=== PATIENT | female | born 2000 | race African-American/Black ===

== ENCOUNTER 2018-08-16 13:48 | Emergency (ER) | payer SELFPAY ==
[~2018-08-16] VITALS: Ht 162.6 cm; Wt 68.9 kg
[~2018-08-16 13:48] MED LIST: NKM
[2018-08-16 14:40] VITALS: BP 122/80
[2018-08-16 15:47] LABS: APPEARANCE,URINE CLEAR; BILIRUBIN, URINE NEGATIVE (NEGATIVE); COLOR,URINE BROWN; GLUCOSE, URINE (UA) NEGATIVE (NEGATIVE); KETONES,URINE 4+ (NEGATIVE); LEUKOCYTE ESTERASE ,URINE 1+ (NEGATIVE); NITRITE,URINE NEGATIVE (NEGATIVE); PH,URINE 7 (4.5-8.0); PROTEIN,URINE 2+ (NEGATIVE); UROBILINOGEN,URINE 4 MG/DL (0.0-1.0)
[2018-08-16] MEDS ORDERED: Lidocaine 2% Visc 15ml soln ORAL ONE (16:30)
[2018-08-16] MEDS ORDERED: Dicyclomine HCl 10mg/5ml oral soln ORAL ONE (16:30)
[2018-08-16] MEDS ORDERED: Mylanta II UD 30ml ORAL ONE (16:30)
[2018-08-16 16:40] VITALS: BP 129/74
[2018-08-16] MEDS ORDERED: REGLAN10 MG ORAL (17:13)
[2018-08-16] MEDS ORDERED: TYLENOL EXTRA500 MG ORAL (17:13)
[2018-08-16] MEDS ORDERED: OMEPRAZOLE20 M2 ORAL (17:13)
[2018-08-16 17:35] VITALS: BP 115/71
--- NOTE | 2018-08-16 22:29 | Emergency Room Report ---
History of Present Illness General Chief Complaint: Vomiting Source: Patient Present Illness HPI Patient is a 17-year-old female presenting for 3 days of nausea and vomiting. Vomit is clear to yellow. She is able to tolerate liquids. This occurs only after eating. She denies any known sick contacts or recent travel. She denies other symptoms including fever, chills, diarrhea, constipation, abdominal pain Allergies: Coded Allergies: PENICILLINS (Verified Allergy, Intermediate, Hives, 09/23/13) Patient History Past Medical History: see triage record Pertinent Family History: none Last Menstrual Period: control implant Reviewed Nursing Documentation: PMH: Agreed; PSxH: Agreed Nursing Documentation-PMH Past Medical History: No Stated History Review of Systems All Other Systems: negative except mentioned in HPI Physical Exam Vital Signs Date Time Temp Pulse Resp B/P (MAP) Pulse Ox O2 Delivery O2 Flow Rate FiO2 08/16/18 14:25 98.1 96 14 122/80 99 Room Air Sp02 EP Interpretation: reviewed, normal General Appearance: no apparent distress, alert, GCS 15, non-toxic Head: normocephalic, atraumatic Respiratory: chest non-tender, lungs clear, normal breath sounds, speaking full sentences Gastrointestinal: normal bowel sounds, soft, non-distended, no guarding, no rebound, tenderness - epigastric Musculoskeletal: back normal, gait/station normal, normal range of motion, non- tender Neurologic: alert, oriented x3, responsive, motor strength/tone normal, sensory intact, speech normal Psychiatric: judgement/insight normal, memory normal, mood/affect normal, no suicidal/homicidal ideation Skin: normal color, no rash, warm/dry, well hydrated Medical Decision Making PA Attestation Dr. Camarena is my supervising physician. Patient management was discussed with my supervising physician Diagnostic Impression: Primary Impression: Nausea & vomiting Qualified Codes: R11.2 - Nausea with vomiting, unspecified ER Course Patient is a 17-year-old female presenting for 3 days of nausea and vomiting. Vomit is clear to yellow. She is able to tolerate liquids. This occurs only after eating. She denies any known sick contacts or recent travel. She denies other symptoms including fever, chills, diarrhea, constipation, abdominal pain DDx considered but not limited to: gastroenteritis, , GERD, among others PE: Afebrile. NAD Abd soft. TTP over epigastric region only. URine preg neg Pt is given zofran but nausea continued. She is then given reglan with GI cocktail and symptoms improved. She tolerated eating before DC. She is to F/U with PCP Laboratory Tests Test 08/16/18 15:03 Urine Color Brown Urine Appearance Clear Urine pH 7 (4.5-8.0) Urine Specific [place] 1.015 (1.005-1.035) Urine Protein 2+ (NEGATIVE) H Urine Glucose (UA) Negative (NEGATIVE) Urine Ketones 4+ (NEGATIVE) H Urine Blood 5+ (NEGATIVE) H Urine Nitrite Negative (NEGATIVE) Urine Bilirubin Negative (NEGATIVE) Urine Urobilinogen 4 MG/DL (0.0-1.0) H Urine Leukocyte Esterase 1+ (NEGATIVE) H Urine RBC 5-10 /HPF (0 - 2) H Urine WBC 2-4 /HPF (0 - 2) Urine Squamous Epithelial Cells Few /LPF (NONE/OCC) Urine Bacteria Few /HPF (NONE) Urine Mucus Few /LPF (NONE/OCC) H Urine HCG, Qualitative Negative (NEGATIVE) Lab Results Impression UA unremarkable. Urine preg neg Last Vital Signs Date Time Temp Pulse Resp B/P (MAP) Pulse Ox O2 Delivery O2 Flow Rate FiO2 08/16/18 17:35 98.1 88 18 115/71 99 Room Air Status: improved Disposition: HOME, SELF-CARE Condition: Improved Scripts Acetaminophen* (TYLENOL EXTRA STRENGTH*) 500 Mg Tablet 500 MG ORAL Q8H PRN for Prn Headache/Temp > 101, #30 TAB 0 Refills Prov: TERZIAN,CHANTE P.A. 08/16/18 Omeprazole (OMEPRAZOLE) 20 Mg Capsule.dr 20 MG ORAL DAILY, #30 CAP Prov: TERZIAN,CHANTE P.A. 08/16/18 Metoclopramide Hcl* (REGLAN*) 10 Mg Tablet 10 MG ORAL THREE TIMES A DAY, #15 TAB Prov: TERZIAN,CHANTE P.A. 08/16/18 Patient Instructions: Nausea and Vomiting, Adult, Food Choices to Help Relieve Diarrhea, Adult Additional Instructions: I discussed my findings with the patient. All questions and concerns have been answered. Treatment and medication compliance have been addressed. I advised the patient that they need to follow up with PMD in 3-5 days. Return to ED if symptoms worsen, new symptoms arise, or if needed for any reason. Patient verbalized understanding of discharge instructions. CHANTE CATALAN Aug 16, 2018 22:29
== END 2018-08-16 17:37 | disposition home or self-care (01) ==
LOC: EMR 14:42
DX: R11.2 Nausea with vomiting, unspecified (principal); Z88.0 Allergy status to penicillin
CPT/HCPCS: 81003; 81025; 99283